=== PATIENT | female | born 1980 | race Caucasian/White ===

== ENCOUNTER 2016-04-26 18:57 | Emergency (ER) | payer OTHER | END 2016-04-26 21:19 | disposition home or self-care (01) | LOC: ER1 18:57 | DX: S60.212A Contusion of left wrist, initial encounter (principal); Z88.1 Allergy status to other antibiotic agents; Z88.5 Allergy status to narcotic agent; Z88.8 Allergy status to other drugs, medicaments and biological substances; F17.210 Nicotine dependence, cigarettes, uncomplicated; W01.198A Fall on same level from slipping, tripping and stumbling with subsequent striking against other object, initial encounter; Y92.69 Other specified industrial and construction area as the place of occurrence of the external cause; Y99.0 Civilian activity done for income or pay | CPT/HCPCS: 29125; 73110; 99283 ==

== ENCOUNTER → 2016-05-07 | Outpatient (CLI) | payer OTHER | LOC: KOH-I 16:00 | DX: M79.642 Pain in left hand (principal); M25.532 Pain in left wrist | CPT/HCPCS: 73221 ==